=== PATIENT | female | born 1945 | race Caucasian/White ===

== ENCOUNTER 2024-03-21 17:03 | Emergency (ER) | payer BC, MEDICARE | END 2024-03-21 18:00 | disposition left against medical advice (07) | LOC: JP.ED 17:03 | DX: Z53.21 Procedure and treatment not carried out due to patient leaving prior to being seen by health care provider (principal) ==

== ENCOUNTER 2024-11-07 06:10 | Day surgery (SDC) | payer MEDICARE ==
[2024-11-07] MEDS: Lactated Ringers 1,000 ML IV SCH (07:17)
[2024-11-07] MEDS ORDERED: fentaNYL 50 MCG/ML SDV ONE (07:20)
[2024-11-07] MEDS ORDERED: Propofol 200 MG/20 ML SDV ONE ×2 (08:50→08:57)
[2024-11-07 10:28] VITALS: BP 105/56; PULSE 59
== END 2024-11-07 10:25 | disposition home or self-care (01) ==
LOC: JP.SDS 06:10
PROVIDERS: ATTEND Surgery
DX: K57.30 Diverticulosis of large intestine without perforation or abscess without bleeding (principal); C50.919 Malignant neoplasm of unspecified site of unspecified female breast; C79.51 Secondary malignant neoplasm of bone; E11.9 Type 2 diabetes mellitus without complications; Z88.8 Allergy status to other drugs, medicaments and biological substances; Z88.0 Allergy status to penicillin; Z79.84 Long term (current) use of oral hypoglycemic drugs; Z79.899 Other long term (current) drug therapy
CPT/HCPCS: 45378; J2704; J3010; J7120